=== PATIENT | male | born 1960 | race Caucasian/White ===

== ENCOUNTER 2020-04-03 08:46 | Day surgery (SDC) | payer MEDICAID ==
[~2020-04-03] VITALS: Ht 175.3 cm; Wt 65.9 kg
[2020-04-03 08:55] VITALS: BP 137/93
[2020-04-03] MEDS ORDERED: NO HOME MEDS (08:58)
[2020-04-03] MEDS ORDERED: fentaNYL/PF 50MCG/1 ML 2ML syringe ONE (09:13)
[2020-04-03] MEDS ORDERED: MIDAZolam 5mg/5ml vial ONE (09:13)
[2020-04-03 10:06] VITALS: BP 122/81
[2020-04-03 10:16] VITALS: BP 124/80
[2020-04-03 10:26] VITALS: BP 118/76
[2020-04-03 10:36] VITALS: BP 114/76
== END 2020-04-03 10:45 | disposition home or self-care (01) ==
LOC: GI LAB 08:46
PROVIDERS: ATTEND Internal Medicine Gastroenterology
DX: Z12.11 Encounter for screening for malignant neoplasm of colon (principal); D12.8 Benign neoplasm of rectum; K64.8 Other hemorrhoids; Z88.5 Allergy status to narcotic agent; Z86.73 Personal history of transient ischemic attack (TIA), and cerebral infarction without residual deficits
CPT/HCPCS: 45380; 45385; 99152; C1773; J2250; J3010; J7040; 99153

== ENCOUNTER 2020-05-23 14:26 | Emergency (ER) | payer MEDICAID ==
[~2020-05-23] VITALS: Ht 177.8 cm; Wt 75.0 kg
[~2020-05-23 14:26] MED LIST: NO HOME MEDS
[2020-05-23] MEDS ORDERED: ASPI-1265 PO (14:42)
[2020-05-23 15:02] LABS: EOSINOPHILS # (AUTO) 0.1 X10'3 (0-0.9); EOSINOPHILS % (AUTO) 1.5 % (0-6); HEMOGLOBIN 11.9 g/dl (14.0-17.9); LYMPHOCYTES # (AUTO) 1.7 X10'3 (1.1-4.8); LYMPHOCYTES % (AUTO) 35.1 % (21-51); MEAN CORPUSCULAR HEMOGLOBIN 31.7 PG (27.0-31.0); MEAN CORPUSCULAR HGB CONC 33.9 g/dL (33.0-36.5); MEAN CORPUSCULAR VOLUME 93.6 FL (78-98); MEAN PLATELET VOLUME 7.7 FL (7.4-10.4); MONOCYTES # (AUTO) 0.4 X10'3 (0-0.9); MONOCYTES % (AUTO) 8.7 % (2-12); NEUTROPHILS # (AUTO) 2.6 X10'3 (1.8-7.7); NEUTROPHILS % (AUTO) 53.7 % (42-75); PLATELET COUNT 325 X10'3 (140-440); RED BLOOD COUNT 3.74 X10'6 (4.70-6.10); RED CELL DISTRIBUTION WIDTH 13.1 % (11.5-14.5); WHITE BLOOD COUNT 4.8 X10'3 (4.5-11.0)
[2020-05-23 15:23] LABS: ALANINE AMINOTRANSFERASE 21 U/L (12-78); ALBUMIN 3.9 G/DL (3.4-5.0); ALBUMIN/GLOBULIN RATIO 1.2 (1.1-1.5); ALKALINE PHOSPHATASE 75 IU/L (46-116); ANION GAP 8 (8-16); ASPARTATE AMINO TRANSFERASE 17 U/L (10-37); BILIRUBIN,TOTAL 0.6 MG/DL (0.1-1.0); BLOOD UREA NITROGEN 13 MG/DL (7-18); BUN/CREATININE RATIO 15.3 (5.4-32.0); CHLORIDE 103 MMOL/L (99-107); CREATININE 0.85 MG/DL (0.60-1.10); GLUCOSE 120 MG/DL (70-104); POTASSIUM 3.3 MMOL/L (3.5-5.1); SODIUM 138 MMOL/L (135-145); TOTAL PROTEIN 7.1 G/DL (6.4-8.2); eGFR > 90 ML/MIN
[2020-05-23 15:33] LABS: ETHANOL < 0.010 GM/DL (0.0-0.010)
--- NOTE | 2020-05-23 15:35 | NUR ---
Pt given a urinal and asked to provide a specimen but reports he feels unable to void at this time.
[2020-05-23 16:09] LABS: CLARITY,URINE CLEAR (Clear); COLOR,URINE YELLOW (Yellow); GLUCOSE, URINE NEGATIVE (Neg); KETONES,URINE NEGATIVE (Neg); LEUKOCYTE ESTERASE ,URINE NEGATIVE (Neg); NITRITES, URINE NEGATIVE (Neg); OCCULT BLOOD,URINE NEGATIVE (Neg); PH,URINE 7.5 (4.8-8.0); PROTEIN,URINE NEGATIVE (Neg); UROBILINOGEN,URINE 0.2 E.U/dL (0.2-1.0)
[2020-05-23 16:21] LABS: URINE AMPHETAMINE SCREEN NEGATIVE (Neg); URINE BARBITUATE SCREEN NEGATIVE (Neg); URINE BENZODIAZEPINES SCREEN NEGATIVE (Neg); URINE CANNABINOID SCREEN POSITIVE (Neg); URINE COCAINE SCREEN NEGATIVE (Neg); URINE METHADONE SCREEN NEGATIVE (Neg); URINE OPIATE SCREEN NEGATIVE (Neg); URINE PHENCYCLIDINE SCREEN NEGATIVE (Neg)
[2020-05-23 16:35] LABS: UA COLLECTION TYPE CLN CATCH MIDSTREAM
--- NOTE | 2020-05-23 17:09 | NUR ---
Pt's sister reports she has noticed a decline in his mental status, disorganized thoughts, emotional, tearful without known reason. She reports he had a fall in a store in December followed by a seizure. She reports he has a history of ETOH abuse and when they went to the house to check on him the house was in total disarray like the place had been ransacked and he could not explain to them the reason it was this way. He phoned his siser in tears and was asking for help with his finances. She reports he has been spending excessive amounts of money that is unlike his normal self.
[2020-05-23] MEDS ORDERED: thiamine 100mg tablet PO ONE (18:15)
--- NOTE | 2020-05-23 19:52 | NUR ---
PACKET FAXED TO [facility]
--- NOTE | 2020-05-23 19:53 | NUR ---
Pt is resting in a position of comfort on the gurney in line of sight of the nurse's station.
--- NOTE | 2020-05-23 20:23 | NUR ---
[facility] staff member is at the bedside to evaluate the patient. Pt is calm and cooperative.
--- NOTE | 2020-05-23 21:03 | NUR ---
Pt has no distress noted. Pt is awaiting disposition from [facility].
--- NOTE | 2020-05-23 21:34 | NUR ---
[facility] staff member reports they will be preparing to seek placement for the patient due to the presentation of his symptoms and the story provided by the family about his recent symptoms at home.
--- NOTE | 2020-05-23 22:35 | NUR ---
No change in condition, care of the patient transferred to Katia Conti RN.
--- NOTE | 2020-05-24 13:51 | NUR ---
[facility] FROM [facility] CALLED FOR A NURSE TO NURSE. PT COVID TESTED. AWAITING RESULTS.
--- NOTE | 2020-05-24 14:03 | NUR ---
PT ACCEPTEDBY [facility] BY DR. HARO. [phone]. WIRE DROPPER AROUND 19:00 TO 20:00.
[2020-05-24 17:57] VITALS: BP 140/108
== END 2020-05-24 19:25 ==
LOC: ER 14:26
DX: F22 Delusional disorders (principal); Z20.828 Contact with and (suspected) exposure to other viral communicable diseases; I10 Essential (primary) hypertension; Z86.73 Personal history of transient ischemic attack (TIA), and cerebral infarction without residual deficits; Z98.890 Other specified postprocedural states; Z88.8 Allergy status to other drugs, medicaments and biological substances; Z79.82 Long term (current) use of aspirin
CPT/HCPCS: 36415; 80053; 80305; 80320; 81003; 82948; 84443; 85025; 87635; 99285; C9803